=== PATIENT | female | born 1995 | race African-American/Black ===

== ENCOUNTER 2023-08-03 11:07 | Emergency (ER) | payer OTHER ==
[~2023-08-03] VITALS: Ht 152.4 cm; Wt 81.0 kg
[2023-08-03 11:14] VITALS: BP 151/85; PULSE 113; RESP 20; TEMP 99.5; O2SAT 100
[2023-08-03] MEDS ORDERED: AMOX1TAB16 MT (14:42)
== END 2023-08-03 16:58 | disposition home or self-care (01) ==
LOC: ER 11:07
DX: K08.89 Other specified disorders of teeth and supporting structures (principal)
CPT/HCPCS: 99281; 99283